=== PATIENT | female | born 1965 | race Hispanic/Latino ===

== ENCOUNTER 2017-05-17 14:37 | Emergency (ER) | payer MEDICAID, OTHER ==
[2017-05-17] MEDS ORDERED: Sodium Chloride 0.9% 1,000 ML IV ONE (15:55)
[2017-05-17] MEDS ORDERED: Iohexol 240 (50 ml) PO ONE (16:27)
[2017-05-17] MEDS ORDERED: Iohexol 240 (50 ml) ONE (16:31)
[2017-05-17] MEDS ORDERED: Sodium Chloride 0.9% 1,000 ML ONE (16:31)
[2017-05-17 16:34] LABS: BASO # 0.1 K/uL (0.0-0.2); BASO % 1.1 % (0.0-2.0); EOS # 0.1 K/uL (0.0-0.7); EOS % 2.8 % (0.0-4.0); HEMOGLOBIN 13.3 g/dL (11.0-16.0); LYMPH # 1.9 K/uL (1.0-4.3); MEAN CELL VOLUME 87.8 fL (81.0-99.0); MEAN CORPUSCULAR HGB CONC 34.2 g/dL (33.0-37.0); MONO # 0.5 K/uL (0.0-0.8); MONO % 10.7 % (0.0-10.0); NEUT # 2.4 K/uL (1.8-7.0); NEUT % 47.4 % (50.0-75.0); NRBC % 0.1 % (0.0-2.0); RBC 4.43 Mil/uL (3.80-5.20); RED CELL DISTRIBUTION WIDTH 13.4 % (11.5-14.5)
[2017-05-17 16:44] LABS: SQUAMOUS EPITHIAL 4 /hpf (0-5); URINE BACTERIA OCC (<OCC); URINE BILIRUBIN NEGATIVE (NEGATIVE); URINE BLOOD NEGATIVE (NEGATIVE); URINE CLARITY Hazy (Clear); URINE COLOR Yellow (YELLOW); URINE GLUCOSE (UA) NORMAL (Normal); URINE LEUKOCYTE ESTERASE NEG Leu/uL (Negative); URINE NITRATE NEGATIVE (NEGATIVE); URINE PROTEIN NEGATIVE (NEGATIVE)
[2017-05-17 17:02] LABS: ALB/GLOB RATIO 1.2 (1.0-2.1); ALBUMIN 3.7 g/dL (3.5-5.0); ALT/SGPT 36 U/L (9-52); AST/SGOT 28 U/L (14-36); BLOOD UREA NITROGEN 11 mg/dL (7-17); CALCIUM 8.7 mg/dl (8.6-10.4); GFR AFRICAN-AMERICAN > 60; GFR NON-AFRICAN AMERICAN > 60; LIPASE 87 U/L (23-300)
[2017-05-17] MEDS ORDERED: Iohexol 350mg/ml 100 ML ONE (17:42)
--- NOTE | 2017-05-17 18:39 | CT ---
PROCEDURE: CT Abdomen and Pelvis with oral and IV contrast. HISTORY: diffuse abdominal tenderness COMPARISON: None available. TECHNIQUE: Contiguous axial images of the abdomen and pelvis. Oral and IV contrast was administered. Coronal and Sagittal reformats generated and reviewed. Contrast dose: 253.01 Radiation dose: Total exam DLP = 253.01 MGy-cm. This CT exam was performed using one or more of the following dose reduction techniques: Automated exposure control, adjustment of the mA and/or kV according to patient size, and/or use of iterative reconstruction technique. FINDINGS: LOWER THORAX: No visible consolidation, pleural effusion, or pneumothorax. LIVER: 5 mm too small to characterize right hepatic lobe hypodensity; statistically likely a cyst or hemangioma. GALLBLADDER AND BILE DUCTS: Cholelithiasis. PANCREAS: Unremarkable. SPLEEN: Unremarkable. ADRENALS: Unremarkable. KIDNEYS AND URETERS: The kidneys enhance symmetrically. No hydronephrosis or obstructing renal calculus. BLADDER: The urinary bladder appears unremarkable. REPRODUCTIVE: Uterus is present. APPENDIX: The appendix appears within normal limits of caliber. No secondary signs of acute appendicitis. BOWEL: The stomach is nondistended. The bowel loops appear within normal limits of caliber without evidence of intestinal obstruction. PERITONEUM: No significant free fluid. No definite free air. LYMPH NODES: No bulky lymphadenopathy identified. VASCULATURE: No aortic aneurysm. BONES: No acute osseous abnormality is detected. OTHER FINDINGS: None. IMPRESSION: Cholelithiasis. 5 mm too small to characterize right hepatic lobe hypodensity; statistically likely a cyst or hemangioma. Additional findings as above.
--- NOTE | 2017-05-17 18:45 | C.PDOC ---
History Of Present Illness 51 y/o female presents to the ED for evaluation of diffuse abdominal cramping and multiple episodes of nonbloody diarrhea for the past 6-7 days. Patient also reports nausea. She denies fever, chills, vomiting, dysuria, hematuria, recent travel, changes in appetite/PO intake, sick contacts. Chief Complaint (Nursing): Abdominal Pain History Per: Patient History/Exam Limitations: no limitations Onset/Duration Of Symptoms: Days (6-7) Current Symptoms Are (Timing): Still Present Location Of Pain/Discomfort: Diffuse Quality Of Discomfort: Cramping, "Pain" Associated Symptoms: Nausea, Diarrhea. denies: Fever, Chills, Vomiting, Urinary Symptoms Additional History Per: Patient Past Medical History Reviewed: Historical Data, Nursing Documentation, Vital Signs Vital Signs: Last Vital Signs Temp 97.6 F 05/17/17 14:53 Pulse 78 05/17/17 14:53 Resp 20 05/17/17 14:53 BP 101/67 05/17/17 14:53 Pulse Ox 97 05/17/17 18:47 - Medical History PMH: Depression Surgical History: No Surg Hx - [facility] Procedures INJECT/INFUSE NEC (10/07/13) Family History: States: Unknown Family Hx - Social History Hx Alcohol Use: Yes Hx Substance Use: No - Immunization History Hx Tetanus Toxoid Vaccination: No Hx Influenza Vaccination: No Hx Pneumococcal Vaccination: No Review Of Systems Constitutional: Negative for: Fever, Chills Gastrointestinal: Positive for: Nausea, Abdominal Pain (diffuse ), Diarrhea. Negative for: Vomiting Genitourinary: Negative for: Dysuria, Hematuria Physical Exam - Physical Exam Appears: Non-toxic, No Acute Distress Skin: Normal Color, Warm, Dry Head: Atraumatic, Normacephalic Eye(s): bilateral: Normal Inspection Oral Mucosa: Moist Neck: Supple Chest: Symmetrical, No Deformity, No Tenderness Cardiovascular: Rhythm Regular, No Murmur Respiratory: Normal Breath Sounds, No Rales, No Rhonchi, No Wheezing Gastrointestinal/Abdominal: Soft, Tenderness (mild, diffuse ), No Guarding, No Rebound Extremity: Normal ROM, Capillary Refill (less than 2 seconds ) Neurological/Psych: Oriented x3, Normal Speech, Normal Cognition Gait: Steady ED Course And Treatment - Laboratory Results Result Diagrams: 05/17/17 16:30 02/08/18 16:30 O2 Sat by Pulse Oximetry: 97 (on RA) Pulse Ox Interpretation: Normal Medical Decision Making Medical Decision Making: Progress: Bloodwork, urinalysis, CT A/P ordered and reviewed. Pepcid IVP, Zofran IVP, and IV Fluids administered. Disposition - Disposition Referrals: Patience Milan, [Non-Staff] - Disposition: HOME/ ROUTINE Disposition Time: 18:40 Condition: IMPROVED Additional Instructions: Thank you for letting us take care of you today. The emergency medical care you received today was directed at your acute symptoms. If you were prescribed any medication, please fill it and take as directed. It may take several days for your symptoms to resolve. Return to the Emergency Department if your symptoms worsen, do not improve, or if you have any other problems. Please contact your doctor or call one of the physicians/clinics you have been referred to that are listed on the Patient Visit Information form that is included in your discharge packet. Bring any paperwork you were given at discharge with you along with any medications you are taking to your follow up visit. Our treatment cannot replace ongoing medical care by a primary care provider (PCP) outside of the emergency department. Thank you for allowing the [facility] team to be part of your care today. Please follow up with your doctor in 2-3 days for re-evaluation and further management. Prescriptions: Ciprofloxacin [Cipro] 500 mg PO BID #14 tab Loperamide [Loperamide HCl] 2 mg PO Q2 PRN #15 cap PRN Reason: Diarrhea Instructions: Dehydration (ED), Acute Diarrhea (ED) Forms: [employer] (Japanese) - Clinical Impression Clinical Impression: Diarrhea, UTI (urinary tract infection) - Scribe Statement The provider has reviewed the documentation as recorded by the Scribe (Shannon Corley) Provider Attestation: All medical record entries made by the Scribe were at my direction and personally dictated by me. I have reviewed the chart and agree that the record accurately reflects my personal performance of the history, physical exam, medical decision making, and the department course for this patient. I have also personally directed, reviewed, and agree with the discharge instructions and disposition.
[2017-05-17 19:11] VITALS: BP 118/88; PULSE 71; RESP 16; TEMP 98.2; O2SAT 99
== END 2017-05-17 19:10 | disposition home or self-care (01) ==
LOC: C.ER 14:37
DX: N39.0 Urinary tract infection, site not specified (principal); R19.7 Diarrhea, unspecified
CPT/HCPCS: 74177; 80053; 81001; 83690; 85025; 87086; 96361; 96374; 96375; 99284; J2405; J7040; Q9966; Q9967

== ENCOUNTER 2018-02-19 10:48 | Emergency (ER) | payer OTHER ==
[2018-02-19 10:49] VITALS: BMI 22.4
[2018-02-19 11:52] VITALS: RESP 18
--- NOTE | 2018-02-19 12:19 | C.PDOC ---
History Of Present Illness 52 yo femalew/PMhx of C-spine chronic pain, bulging disk, spondilosis, chr. lower back pain, present to ED for evaluation of lower back pain exacerbation for past 1 week. Pt reports, pain is localized over lower back, worse with movement, with intermittent radiation to B/L inner thigh. Pt admits, similar sx in past, take IBuprofen " double dose of 600 mg" without improvement. Otherwise, pt denies known trauma or injury, fever, chills, abd. pain, N/V, UTI sx, denies saddle anesthesia, incontinence, weakness, sensory or vascular deficits to NB/L LES. Ambulate to Ed for evaluation, not in any apparent distress. Time Seen by Provider: 02/19/18 11:30 Chief Complaint (Nursing): Back Pain History Per: Patient Past Medical History Reviewed: Historical Data, Nursing Documentation, Vital Signs Vital Signs: Last Vital Signs Temp 97.8 F 02/19/18 11:40 Pulse 100 H 02/19/18 11:40 Resp 18 02/19/18 11:40 BP 106/72 02/19/18 11:40 Pulse Ox 100 02/19/18 11:40 - Medical History PMH: Anxiety, Depression, Chronic Pain Denies: Chronic Kidney Disease - [facility] Procedures INJECT/INFUSE NEC (10/07/13) Family History: States: Unknown Family Hx - Social History Hx Alcohol Use: Yes Hx Substance Use: No - Immunization History Hx Tetanus Toxoid Vaccination: No Hx Influenza Vaccination: No Hx Pneumococcal Vaccination: No Review Of Systems Except As Marked, All Systems Reviewed And Found Negative. Constitutional: Negative for: Fever, Chills ENT: Negative for: Throat Pain Cardiovascular: Negative for: Chest Pain, Palpitations Respiratory: Negative for: Cough, Shortness of Breath, Wheezing Gastrointestinal: Negative for: Nausea, Vomiting, Abdominal Pain, Diarrhea Musculoskeletal: Positive for: Back Pain. Negative for: Neck Pain Skin: Negative for: Rash Neurological: Negative for: Weakness, Numbness, Altered Mental Status, Headache, Dizziness Physical Exam - Physical Exam Appears: Well, Non-toxic, No Acute Distress Skin: Normal Color, Warm, Dry, No Rash Head: Normacephalic Eye(s): bilateral: PERRL Throat: No Erythema Neck: Trachea Midline, Supple Cardiovascular: Rhythm Regular Respiratory: No Decreased Breath Sounds, No Accessory Muscle Use, No Stridor, No Wheezing Gastrointestinal/Abdominal: Soft, No Tenderness, No Distention, No Guarding, No Rebound Back: No CVA Tenderness, Paraspinal Tenderness (diffuse lumbar with palpable muscle spasm. No midline tenderness) Extremity: Normal ROM, No Deformity, No Swelling DTR: Knee (R): 2+, Knee (L): 2+ Neurological/Psych: Oriented x3, Normal Speech, Normal Motor, Normal Sensation, Normal Reflexes ED Course And Treatment O2 Sat by Pulse Oximetry: 100 Pulse Ox Interpretation: Normal Progress Note: On re-eval, pt is afebrile, hemodynamicaly stable. Non-toxic. Ambulatory in ED with stable gait. ENT: no acute findings. Abd: benign. Back: (-) CVA tenderness. Neuorlogicaly intact. Preg (-). UA- normal study. Pt has clinical findings c/w back pain r/o lumbar radiculopathy. Pt advised and ref. to f/u with PMD, Neuro, PM in 2-3 days for re-eval. return to ED if any worsening or new changes. Pt understand and agrees with plan. Disposition Counseled Patient/Family Regarding: Studies Performed, Diagnosis, Need For Followup, Rx Given - Disposition Referrals: [facility] [Outside] Disposition: HOME/ ROUTINE Disposition Time: 12:46 Condition: STABLE Additional Instructions: Light duty back brace take medication as prescribed Follow up with PMD, PM in 2-3 days for re-evaluation. return to ED if any worsening or new changes. Prescriptions: Gabapentin [Neurontin] 300 mg PO Q12 #10 cap Methocarbamol [Robaxin] 500 mg PO TID #14 tab Prednisone [Deltasone] 40 mg PO DAILY #6 tablet Instructions: Radiculopathy Forms: [employer] (Congolese), Work Excuse - Clinical Impression Clinical Impression: Lumbar radiculopathy
[2018-02-19 12:47] LABS: SQUAMOUS EPITHIAL 3 /hpf (0-5); URINE BILIRUBIN NEGATIVE (NEGATIVE); URINE BLOOD NEGATIVE (NEGATIVE); URINE CLARITY Clear (Clear); URINE COLOR Yellow (YELLOW); URINE GLUCOSE (UA) NORMAL (Normal); URINE HYALINE CAST 0-2 /lpf (0-2); URINE LEUKOCYTE ESTERASE NEG Leu/uL (Negative); URINE PROTEIN NEGATIVE (NEGATIVE); URINE UROBILINOGEN NORMAL mg/dL (0.2-1.0)
[2018-02-19 13:39] VITALS: BP 116/78; PULSE 76; TEMP 98.6; O2SAT 99
== END 2018-02-19 13:10 | disposition home or self-care (01) ==
LOC: C.ER 10:48
DX: M54.16 Radiculopathy, lumbar region (principal)

== ENCOUNTER 2018-06-28 13:03 | Outpatient (CLI) | payer OTHER | END 2018-06-28 13:04 | disposition home or self-care (01) | LOC: C.MAMMO 13:04 | DX: Z12.31 Encounter for screening mammogram for malignant neoplasm of breast (principal) ==